=== PATIENT | female | born 1975 | race Caucasian/White ===

== ENCOUNTER 2018-04-11 08:15 | Outpatient (CLI) | payer OTHER ==
[~2018-04-11 08:15] MED LIST: DEPAKOTE ER250 MG; DILTIAZEM ER60 MG
== END 2018-04-11 08:30 | disposition home or self-care (01) ==
LOC: SONOGRAMA 08:15
DX: R22.2 Localized swelling, mass and lump, trunk (principal)

== ENCOUNTER 2020-04-16 11:37 | Emergency (ER) | payer OTHER ==
[~2020-04-16] VITALS: Ht 154.9 cm; Wt 69.9 kg
[2020-04-16] MEDS ORDERED: HYZAAR 100-251 EACH PO (11:51)
[2020-04-16] MEDS ORDERED: CLONAZEPAM2 MG (11:51)
[2020-04-16] MEDS ORDERED: HYDRALAZINE HCL25 MG (11:51)
[2020-04-16] MEDS ORDERED: NORVASC2.5 M1 (11:51)
[2020-04-16] MEDS ORDERED: TEMAZEPAM30 MG (11:52)
[2020-04-16] MEDS ORDERED: KETO10TA2 PO (14:16)
== END 2020-04-16 14:44 | disposition home or self-care (01) ==
LOC: ER 11:37
DX: R53.1 Weakness (principal); Z20.822 Contact with and (suspected) exposure to COVID-19

== ENCOUNTER 2022-04-20 07:06 | Outpatient (CLI) | payer OTHER ==
[~2022-04-20 07:06] MED LIST changes: +CLONAZEPAM2 MG; +HYDRALAZINE HCL25 MG; +HYZAAR 100-251 EACH PO; +KETO10TA2 PO; +NORVASC2.5 M1; +TEMAZEPAM30 MG
== END 2022-04-20 07:09 | disposition home or self-care (01) ==
LOC: NUCLEAR 07:06
DX: K31.84 Gastroparesis (principal)
CPT/HCPCS: 78264; A9541